=== PATIENT | female | born 1995 | race Hispanic/Latino ===

== ENCOUNTER 2016-05-30 19:55 | Emergency (ER) | payer OTHER ==
[~2016-05-30] VITALS: Ht 149.9 cm; Wt 56.7 kg
[2016-05-30 21:28] LABS: BASO % 0.3 % (0.0-1.0); EOS # 0.1 K/mm3 (0.0-0.50); EOS % 0.9 % (0.0-3.0); LARGE UNSTAINED CELL # 0.1 K/mm3 (0.0-0.4); LARGE UNSTAINED CELL % 1.2 % (0.0-4.0); LYMPH # 2.9 K/mm3 (1.5-6.5); LYMPH % 27.4 % (24.0-44.0); MEAN CORPUSCULAR HEMOGLOBIN 30.4 pg (27.0-33.0); MEAN CORPUSCULAR HGB CONC 33.8 g/dl (32.0-36.5); MEAN CORPUSCULAR VOLUME 89.9 fl (80.0-96.0); MONO # 0.5 K/mm3 (0.0-0.8); MONO % 4.8 % (0.0-5.0); NEUTROPHILS # 6.9 K/mm3 (1.8-7.7); NEUTROPHILS % 65.5 % (36.0-66.0); PLATELET COUNT, AUTOMATED 236 k/mm3 (150-450); RED CELL DISTRIBUTION WIDTH 12.1 % (11.5-14.5); WHITE BLOOD COUNT 10.4 K/mm3 (4.0-10.0)
[2016-05-30 21:36] LABS: CONTROL LINE HCG INT CTR LINE PRESENT
[2016-05-31] VITALS: BP 107/66
--- NOTE | 2016-06-01 09:16 | REPUSA ---
CLINICAL HISTORY: Bleeding. TECHNIQUE: Realtime sonographic images were obtained in multiple projections. COMMENTS: BIOMETRY AND GROWTH: Measurement GA Range Source %for 7w1d Ratios Sac 2.2 cm 06w5d ([id number]) Angie Sac 29% CRL 0.9 cm 06w6d (29d9d-12w5a) [place] CRL 27% GA for sonogram 06w6d (06w2d - 07w3d) Based on (CRL) Average heart rate: 144 A single, living, intrauterine was identified utilizing both transabdominal and transvagina l imaging technique. The estimated gestational age is 6 weeks 6 days, based on pole measuremen t of 9 mm. The heart rate was documented at 144 bpm. A moderate subchorionic hemorrhage was identified penn perior and left measuring 1.1 x 1.6 x 1.6 cm. Evaluation of the maternal adnexal and cul-de-sac hima ons revealed a right ovarian cyst, likely a corpus luteum. Based on today's examination, the estimated date of delivery is 01/17/2017. Although a complete cliff omical survey is not possible at this gestational age, no gross feta anomalies were identified. IMPRESSION: 1. A single, live intrauterine , 6 weeks 6 days based on today's pole measurement. 2. A moderate subchorionic hemorrhage was identified superior and left. 4. A right ovarian cyst, likely a corpus luteum. 5. Estimated date of delivery is 01/17/2017 6. Although a complete anatomical survey is not possible at this gestational age, no gross ano malies were identified. A repeat scan at 19-20 weeks for a detailed anatomical survey is recommended. A repeat scan at 19-20 weeks for a detailed anatomical survey is recommended. Thank you for your kind referral of this patient. We appreciate the opportunity to participate in th is patient's care.
== END 2016-05-31 00:02 | disposition home or self-care (01) ==
LOC: M ED 22:03
DX: O20.0 Threatened abortion (principal); O34.81 Maternal care for other abnormalities of pelvic organs, first trimester; Z3A.01 Less than 8 weeks gestation of pregnancy

== ENCOUNTER 2017-01-04 15:23 | Outpatient (CLI) | payer OTHER ==
[~2017-01-04] VITALS: Ht 121.9 cm; Wt 73.7 kg
[~2017-01-04 15:23] MED LIST: PRENATAL VITAMINS CHEWABLE TABLET PO SCH; valACYclovir HCL 500 MG TAB PO SCH
[2017-01-04 15:50] VITALS: BP 110/63
[2017-01-04] MEDS ORDERED: VALT1TAB PO (16:05)
[2017-01-04] MEDS ORDERED: PRENTAB9 PO (16:05)
[2017-01-04 16:47] VITALS: BP 109/72
[2017-01-04] MEDS ORDERED: LACTATED RINGER'S 1000 ML IV STA (17:03)
[2017-01-04 17:52] LABS: MEAN CORPUSCULAR HEMOGLOBIN 31.8 pg (27.0-33.0); MEAN CORPUSCULAR HGB CONC 34.9 g/dl (32.0-36.5); MEAN CORPUSCULAR VOLUME 91.2 fl (80.0-96.0); PLATELET COUNT, AUTOMATED 187 10^3/uL (150-450); RED CELL DISTRIBUTION WIDTH 13.2 % (11.5-14.5); WHITE BLOOD COUNT 8.1 10^3/uL (4.0-10.0)
[2017-01-04 18:20] VITALS: BP 122/68
[2017-01-04 18:44] VITALS: BP 102/55
[2017-01-04 20:57] VITALS: BP 94/55
--- NOTE | 2017-01-04 21:20 | IPNPDOC ---
Text Note Date of Service The patient was seen on 01/04/17. NOTE Shital is a 21yo with SIUP at 38w3d who presented to clinic today stating she had had a fall onto her bottom this morning. She states that she slipped on ice and did not hit her belly. She felt good movement after, so did not feel like she needed to present before her routine scheduled appt in the afternoon. CECILIA Raza called me and I confirmed the pt would need prolonged monitoring to rule out abruption, even if she was feeling well without complaints. She has had no vaginal bleeding, has felt no regular ctx. No LOF. course only complicated by confirmed HSV, she is taking valtrex prophylaxis since 36wk. Vitals wnl. General: WDWN, NAD, resting comfortably in bed Abdomen: soft, gravid, NTTP Extremities: no edema of BLE TAUS: blake IUP with cephalic presentation, YOMAIRA 9.8cm, +FCA, +FM, anterior placenta with no abnormalities noted Cat I FHRT with bl 120's, +accels, -decels, mod brijesh [place]: irregular ctx Labs: CBC: WBC 8.1, H/H 14.5/41.6, plt 187 fibrinogen: 466 MBT O positive Urine tox screen negative Assessment: Shital is a 21yo with SIUP at 38w3d s/p uncomplicated fall earlier, did not strike abdomen, no vaginal bleeding. Vitals wnl, reassuring status with YOMAIRA 9.8cm. Initial fibrinogen wnl, 466. Will need observation since she is arun and cannot rule out abruption vs normal term uterine activity. Plan: -Observation overnight -Repeat fibrinogen, CBC in the morning to compare -If establish stability with continued reassuring monitoring, possible discharge in the morning -Regular diet -PNV and valtrex Dr. Melody Castaneda MD [place] [facility] VS,Chandni, I+O VS, Chandni, I+O Laboratory Tests 01/04/17 17:44 Red Blood Count 4.56, Mean Corpuscular Volume 91.2, Mean Corpuscular Hemoglobin 31.8, Mean Corpuscular Hemoglobin Concent 34.9, Red Cell Distribution Width 13.2 Vital Signs Date Time Temp Pulse Resp B/P (MAP) Pulse Ox O2 Delivery O2 Flow Rate FiO2 01/04/17 18:20 98.0 82 18 122/68 (86) 01/04/17 16:27 Room Air I&O- Last 24 Hours up to 6 AM 01/05/17 06:00 Intake Total 1000 ml Output Total 1250 ml Balance -250 ml Melody Castaneda MD Jan 04, 2017 21:20
[2017-01-04 22:29] VITALS: BP 91/54
[2017-01-05 00:01] VITALS: BP 92/53
[2017-01-05 06:08] VITALS: BP 87/52
[2017-01-05 06:22] LABS: MEAN CORPUSCULAR HEMOGLOBIN 31.7 pg (27.0-33.0); MEAN CORPUSCULAR HGB CONC 34.2 g/dl (32.0-36.5); MEAN CORPUSCULAR VOLUME 92.9 fl (80.0-96.0); PLATELET COUNT, AUTOMATED 175 10^3/uL (150-450); RED CELL DISTRIBUTION WIDTH 13.2 % (11.5-14.5); WHITE BLOOD COUNT 8.3 10^3/uL (4.0-10.0)
[2017-01-05 06:42] VITALS: BP 95/56
[2017-01-05 07:08] VITALS: BP 97/62
[2017-01-05 07:18] VITALS: BP 101/72
--- NOTE | 2017-01-05 07:20 | IPNPDOC ---
Text Note Date of Service The patient was seen on 01/05/17. NOTE Shital is a 21yo with SIUP at 38w4d who was observed overnight on L&D for a fall she had onto her bottom yesterday morning since she had contractions observed on the monitor, never felt by her. She did not hit her belly. Overnight she felt good movement, never had vaginal bleeding. Did have some "gassy" type abdominal pain earlier that she states fully resolved after she had a bowel movement. No LOF. Still does not feel any contractions. course only complicated by confirmed HSV, she is taking valtrex prophylaxis since 36wk. Vitals wnl. General: WDWN, NAD, resting comfortably in bed Abdomen: soft, gravid, NTTP in any quadrant Extremities: no edema of BLE Cat I FHRT with bl 130's, +accels, -decels, mod brijesh [place]: irregular ctx Labs: 01/05 fibrinogen 445 CBC: H/H 13.8/40.4, plt 175 01/04 CBC: H/H 14.5/41.6, plt 187 fibrinogen: 466 MBT O positive Urine tox screen negative Assessment: Shital is a 21yo with SIUP at 38w4d s/p uncomplicated fall yesterday morning during which she did not strike abdomen or have any symptoms such as abdominal pain or vaginal bleeding now monitored overnight with demonstrated stability. Vitals wnl, reassuring status with YOMAIRA 9.8cm on presentation. Fibrinogen stable at 445. Cat I FHRT overnight. Still occasional ctx that she does not feel. No evidence of abruption or labor. Plan: -Discharge to home -Patient has follow-up centering appt for 40wk, but no appt next week. I instructed her to call the clinic to make a 39wk/follow-up appt -Continue PNV and valtrex -Discussed return precautions MD Josh [place] I+O Chandni WYLIE I+O Laboratory Tests 01/04/17 17:44 Red Blood Count 4.56, Mean Corpuscular Volume 91.2, Mean Corpuscular Hemoglobin 31.8, Mean Corpuscular Hemoglobin Concent 34.9, Red Cell Distribution Width 13.2 01/05/17 06:11 Red Blood Count 4.35, Mean Corpuscular Volume 92.9, Mean Corpuscular Hemoglobin 31.7, Mean Corpuscular Hemoglobin Concent 34.2, Red Cell Distribution Width 13.2 Vital Signs Date Time Temp Pulse Resp B/P (MAP) Pulse Ox O2 Delivery O2 Flow Rate FiO2 01/05/17 06:42 71 18 95/56 (69) 01/05/17 00:01 98.6 01/04/17 16:27 Room Air I&O- Last 24 Hours up to 6 AM 01/06/17 06:00 Intake Total 750 ml Output Total 925 ml Balance -175 ml Melody Castaneda MD Jan 05, 2017 07:20
[2017-01-05] MEDS ORDERED: valACYclovir HCL 500 MG TAB PO SCH (09:00)
== END 2017-01-05 07:48 | disposition home or self-care (01) ==
LOC: M LDO 15:23
PROVIDERS: ATTEND Obstetrics & Gynecology
DX: O99.89 Other specified diseases and conditions complicating pregnancy, childbirth and the puerperium (principal); Z3A.38 38 weeks gestation of pregnancy; W19.XXXA Unspecified fall, initial encounter; X58.XXXA Exposure to other specified factors, initial encounter; Y93.9 Activity, unspecified; Y92.9 Unspecified place or not applicable; Y99.8 Other external cause status; O62.0 Primary inadequate contractions; O98.313 Other infections with a predominantly sexual mode of transmission complicating pregnancy, third trimester

== ENCOUNTER 2017-01-21 06:54 | Inpatient (IN) | payer OTHER ==
[2017-01-21] VITALS (7 sets, daily range): BP systolic 98–121; BP diastolic 59–78
[~2017-01-21] VITALS: Ht 149.9 cm; Wt 95.3 kg
[~2017-01-21 06:54] MED LIST changes: -PRENATAL VITAMINS CHEWABLE TABLET PO SCH; +PRENTAB9 PO; +VALT1TAB PO; -valACYclovir HCL 500 MG TAB PO SCH
[2017-01-21] MEDS ORDERED: LACTATED RINGER'S 1000 ML IV STA (07:34)
[2017-01-21] MEDS ORDERED: ACET50TA PO (07:39)
[2017-01-21 07:57] LABS: MEAN CORPUSCULAR HEMOGLOBIN 32.1 pg (27.0-33.0); MEAN CORPUSCULAR HGB CONC 34.8 g/dl (32.0-36.5); MEAN CORPUSCULAR VOLUME 92.1 fl (80.0-96.0); PLATELET COUNT, AUTOMATED 176 10^3/uL (150-450); RED CELL DISTRIBUTION WIDTH 13.6 % (11.5-14.5); WHITE BLOOD COUNT 8.1 10^3/uL (4.0-10.0)
[2017-01-21] MEDS ORDERED: LR 1,000 ML IV SCH ×2 (08:00→08:04)
[2017-01-21] MEDS ORDERED: BICITRA 30ML SOLN UDC PO ONE (08:15)
[2017-01-21] MEDS ORDERED: CEFAZOLIN SOD 1 GM in APPROPRIATE DILUENT 1 EA IV ONE (09:00)
[2017-01-21] MEDS ORDERED: OXYTOCIN INJ 10 UNITS/ML VIAL (J2590) As Ordered ONE ×2 (10:38→10:39)
[2017-01-21] MEDS ORDERED: MORPHINE PRES-FREE INJ 10 MG/10 ML VIAL (J2274) As Ordered ONE (10:38)
[2017-01-21] MEDS ORDERED: ONDANSETRON 4MG/2ML VIAL (J2405) IV PRN ×3 (11:10→12:45)
[2017-01-21] MEDS ORDERED: METOCLOPRAMIDE INJ 10MG/2ML VIAL (J2765) IV PRN (11:10)
[2017-01-21] MEDS ORDERED: NALBUPHINE HCL 10 MG/ML AMP (J2300) IV PRN ×2 (11:10→12:45)
[2017-01-21] MEDS ORDERED: NALOXONE INJ 0.4 MG/1 ML VIAL (J2310) IV PRN ×2 (11:10)
[2017-01-21] MEDS ORDERED: PHENYLephrine HCL 500 MCG/5 ML (100MCG/ML) SYRINGE (J2370) As Ordered ONE (11:11)
[2017-01-21] MEDS ORDERED: ePHEDrine SULFATE 25 MG/5 ML(5MG/ML) SYRINGE As Ordered ONE (11:12)
[2017-01-21] MEDS ORDERED: ONDANSETRON 4MG/2ML VIAL (J2405) As Ordered ONE (11:40)
[2017-01-21] MEDS ORDERED: DOCUSATE SODIUM 100 MG CAP PO PRN (12:30)
[2017-01-21] MEDS ORDERED: RHOGAM 300 MCG (1500 IU) INJ (J2790) IM SCH (12:30)
[2017-01-21] MEDS ORDERED: PERCOCET 5MG/325MG TAB PO PRN (12:30)
[2017-01-21] MEDS ORDERED: METHYLERGONOVINE MALEATE 0.2 MG TAB PO PRN (12:30)
[2017-01-21] MEDS ORDERED: MOM 30ML SUSPENSION UDC PO PRN (12:30)
[2017-01-21] MEDS ORDERED: MEASLES,MUMPS,RUBELLA VACCINE INJ (MMR-II) (90707) SC SCH (12:30)
[2017-01-21] MEDS ORDERED: PROMETHAZINE 25 MG TAB PO PRN (12:30)
[2017-01-21] MEDS ORDERED: fentaNYL 100 MCG/2 ML INJECTION (J3010) IV PRN (12:45)
[2017-01-21] MEDS ORDERED: KETOROLAC 30 MG/ML VIAL (J1885) IV PRN (12:45)
[2017-01-21] MEDS ORDERED: MEPERIDINE INJ 25 MG/ML VIAL (J2175) IV PRN (12:45)
[2017-01-21] MEDS ORDERED: diphenhydrAMINE INJ 50MG/ML VIAL (J1200) IV PRN (12:45)
[2017-01-21] MEDS: KETOROLAC 30 MG/ML VIAL (J1885) IV SCH ×2 (12:56→18:07)
[2017-01-21] MEDS: LR 1,000 ML IV SCH ×2 (13:23→20:57)
[2017-01-22] MEDS: KETOROLAC 30 MG/ML VIAL (J1885) IV SCH ×2 (00:58→06:45)
[2017-01-22 02:22] VITALS: BP 105/64
[2017-01-22] MEDS: LR 1,000 ML IV SCH (04:49)
[2017-01-22 06:11] VITALS: BP 103/59
[2017-01-22 07:00] LABS: MEAN CORPUSCULAR HEMOGLOBIN 31.9 pg (27.0-33.0); MEAN CORPUSCULAR HGB CONC 33.9 g/dl (32.0-36.5); MEAN CORPUSCULAR VOLUME 94.2 fl (80.0-96.0); PLATELET COUNT, AUTOMATED 154 10^3/uL (150-450); RED CELL DISTRIBUTION WIDTH 13.5 % (11.5-14.5); WHITE BLOOD COUNT 9.6 10^3/uL (4.0-10.0)
[2017-01-22] MEDS: PRENATAL VITAMINS CHEWABLE TABLET PO SCH (08:30)
[2017-01-22] MEDS: valACYclovir HCL 500 MG TAB PO SCH ×2 (08:31→21:39)
[2017-01-22] MEDS: PERCOCET 5MG/325MG TAB PO PRN ×3 (09:04→21:40)
[2017-01-22 10:05] VITALS: BP 115/54
--- NOTE | 2017-01-22 11:48 | RO ---
DATE OF PROCEDURE: 01/21/2017 PREPROCEDURE DIAGNOSIS: 1) Term 2) Genital herpes - primary outbreak POSTPROCEDURE DIAGNOSES: 1) Term 2) Genital herpes - primary outbreak PROCEDURE: Primary Low Transverse Section SURGEON: Chauncey Chase MD PRODUCT TRAINER: Supa Pozo MD ANESTHESIA: Uf, Spinal INDICATION FOR SURGERY: Patient is a found at 40+6 to have primary outbreak of herpes simplex virus (HSV) in the genital region and has been started on Valtrex, however, with review of risks/benefits/alternatives/indications to undergoing a labor course and delivering vaginally verus a primary low transverse with concern for transmission of herpes to the the [employer] (ACOG) recommends primary low transverse . Reviewed risks, benefits, alternatives, and indications to surgery as well as blood transfusion and a informed consent was obtained. Patient was taken operating room where spinal anesthesia was obtained without difficulty. She was then prepped in a normal sterile manner in a dorsal supine position with a lateral tilt. After a sweeney catheter was placed, appropriate prepping and draping was performed, and a time out was performed. A low Pfannenstiel incision was performed and carried down to the underling layer of fascia. The fascia was incised midline and extended laterally on both sided with king scissors. Fascia was then grasped times two with Georgie clamps at both the superior and inferior aspect and subsequently starting superior underlying rectus muscle was gently dissected off without complications. After being done in the inferior aspect, the peritoneum was then entered digitally and in a superior and inferior fashion. The uterus was then identified. After a bladder blade was placed the vesicouterine peritoneum was picked up and entered sharply and bladder blade incision was extended laterally on both sides. The bladder blade was reintroduced protecting the new bladder flap. A low transverse uterine incision was created and then extended laterally; after AROM - clear fluid noting. The infant was noted to be the occipitoposterior (OP) presentation and delivered through hysterotomy without difficulty. The cord was doubled clamped and cut and handed off to the waiting nursing/NICU team. The placenta was then delivered through the hysterotomy without complication. The uterus was exteriorized and cleared of clots, debris and remaining membranes. The pitocin was running in routine fashion. Hysterotomy was closed in a running locked fashion with #0 Monocryl without complication. A second layer of #0 Monocryl was used to embrocate the hysterotomy. The posterior cul-de-sac was cleared of all clots and debris and irrigated. Reevaluation of surgical site demonstrated complete hemostasis. After the uterus was then reintroduced into the abdomen again and remained hemostatic. The fascia was then repaired with #0 Vicryl in a running fashion. The subcutaneous tissue was then closed with #3-0 Vicryl in a single interrupted fashion x3; then the skin was closed with #4-0 Monocryl in subcuticular fashion. Steri-Strips were then applied and an abdominal pressure dressing applied. Patient was taking to the post-anesthesia care unit (PACU) in stable condition. Received antibiotics within 15 minutes of . Jimbo Chase OB-CAUSTIC ROOM OPERATOR JIMMIED
[2017-01-22 14:12] VITALS: BP 113/65
[2017-01-22 18:19] VITALS: BP 108/70
[2017-01-23] MEDS: PERCOCET 5MG/325MG TAB PO PRN ×2 (03:38→08:37)
[2017-01-23 06:04] VITALS: BP 110/68
[2017-01-23] MEDS: valACYclovir HCL 500 MG TAB PO SCH (08:34)
[2017-01-23] MEDS: PRENATAL VITAMINS CHEWABLE TABLET PO SCH (08:34)
--- NOTE | 2017-01-23 09:00 | IPNPDOC ---
Text Note Date of Service The patient was seen on 01/23/17. NOTE POD 2 Shital is a 21yo s/p uncomplicated PLTCS for recent genital HSV outbreak, now POD 2. She is doing well this morning. She is ambulating, voiding spontaneously and tolerating regular diet without issue. Minimal vaginal bleeding. Denies f/c/n/v/SOB/CP. Breast feeding well. Pain controlled on PO medications. No bowel movement yet, but passing flatus. Vitals wnl, afebrile General: WDWN, resting comfortably in bed Abdomen: soft, ND, appropriately tender, fundus firm at u-2cm. Steri strips overlying incision which is well reapproximated with no redness/drainage/ induration Extremities: no pain with palpation of calves Labs: pre-op H/H 14.5/41.9 post-op H/H 12.1/35.7 Assessment: Shital is a 21yo s/p uncomplicated PLTCS for recent genital HSV outbreak, now POD 2. Benign /post-operative course. Vitals wnl, afebrile. Hemodynamically stable with no evidence of infection. Meeting all milestones and desiring discharge. Plan: -discharge to home today -motrin/percocet prn pain -Given home meds: lanolin, percocet, motrin, colace -Continue valtrex -discussed return precautions: increasing abdominal pain, fevers/chills, foul smelling discharge, signs of wound infection such as redness or drainage of incision, pain/redness of breast, shortness of breath, chest pain, heavy vaginal bleeding or any other concerns -has 2 week incision check in [facility] Dr. Melody Castaneda MD [facility] VS,Chandni, I+O VS, Chandni, I+O Vital Signs Date Time Temp Pulse Resp B/P (MAP) Pulse Ox O2 Delivery O2 Flow Rate FiO2 01/23/17 08:37 20 01/23/17 06:04 97.9 77 110/68 (82) 01/22/17 14:12 100 01/22/17 06:11 Room Air Melody Castaneda MD Jan 23, 2017 09:00
--- NOTE | 2017-01-23 09:04 | DS.PDOC ---
Discharge Summary General Date of Admission Jan 21, 2017 at 06:54 Date of Discharge Jan 23, 2017 Attending Physician: Melody Castaneda MD Discharge Summary PROCEDURES PERFORMED DURING STAY: primary low transverse section ADMITTING DIAGNOSES: 1. Scheduled primary low transverse section for recent outbreak of genital herpes simplex virus at term DISCHARGE DIAGNOSES: 1. Scheduled primary low transverse section for recent outbreak of genital herpes simplex virus at term COMPLICATIONS/CHIEF COMPLAINT: recent genital herpes outbreak HISTORY OF PRESENT ILLNESS/HOSPITAL COURSE: Shital is a 21yo s/p uncomplicated PLTCS for recent genital HSV outbreak. She had a benign /post-operative course. At time of discharge her vitals were wnl, afebrile. She remained hemodynamically stable with no evidence of infection. She was meeting all milestones and desiring discharge. DISCHARGE MEDICATIONS: Please see below. ALLERGIES: Please see below. PHYSICAL EXAMINATION ON DISCHARGE: Vitals wnl, afebrile General: WDWN, resting comfortably in bed Abdomen: soft, ND, appropriately tender, fundus firm at u-2cm. Steri strips overlying incision which is well reapproximated with no redness/drainage/ induration Extremities: no pain with palpation of calves LABORATORY DATA: pre-op H/H 14.5/41.9 post-op H/H 12.1/35.7 ACTIVITY: no heavy lifting greater than weight of baby, vaginal rest 6 weeks DIET: regular DISPOSITION: Home DISCHARGE PLAN/INSTRUCTIONS: -discharge to home today -motrin/percocet prn pain -Given home meds: lanolin, percocet, motrin, colace -Continue valtrex -discussed return precautions: increasing abdominal pain, fevers/chills, foul smelling discharge, signs of wound infection such as redness or drainage of incision, pain/redness of breast, shortness of breath, chest pain, heavy vaginal bleeding or any other concerns -has 2 week incision check in [place] [facility] DISCHARGE CONDITION: Stable TIME SPENT ON DISCHARGE: Greater than [address] Melody Castaneda MD [facility] Vital Signs/I&Os Vital Signs Date Time Temp Pulse Resp B/P (MAP) Pulse Ox O2 Delivery O2 Flow Rate FiO2 01/23/17 08:37 20 01/23/17 06:04 97.9 77 110/68 (82) 01/22/17 14:12 100 01/22/17 06:11 Room Air Discharge Medications Scheduled Multivitamins/ ( 27-0.8 mg) 1 Tab Tab, 1 TAB PO DAILY, (Reported ) Scheduled PRN Acetaminophen (Mapap) 500 Mg Tab, 500 MG PO PRN PRN for PAIN OR FEVER, (Reported ) Miscellaneous Medications Valacyclovir Hydrochloride (Valtrex) 1 Gm Tab, Unknown Dose PO, (Reported) Allergies Coded Allergies: No Known Allergies (Unverified , 01/21/17) Melody Castaneda MD Jan 23, 2017 09:04
[2017-01-23] MEDS ORDERED: COLA100C5 PO (11:31)
[2017-01-23] MEDS ORDERED: OXYC1TAB23 PO (11:31)
== END 2017-01-23 12:15 | disposition home or self-care (01) | DRG 766 ==
LOC: M LDI 06:54 → M OBS 13:45
PROVIDERS: ADMIT Student in an Organized Health Care Education/Training Program; ATTEND Student in an Organized Health Care Education/Training Program
PROC: 10D00Z1 Extraction of Products of Conception, Low, Open Approach (ICD-10-PCS; principal; 2017-01-21 09:30)
DX: O98.32 Other infections with a predominantly sexual mode of transmission complicating childbirth (principal); A60.09 Herpesviral infection of other urogenital tract; Z3A.40 40 weeks gestation of pregnancy; O26.43 Herpes gestationis, third trimester; O48.0 Post-term pregnancy; Z37.0 Single live birth